=== PATIENT | female | born 1990 | race Caucasian/White ===

== ENCOUNTER 2016-06-22 16:40 | Emergency (ER) | payer BC ==
[~2016-06-22] VITALS: Ht 175.3 cm; Wt 79.5 kg
[2016-06-22 16:41] VITALS: BP 130/74; TEMP 98
[2016-06-22 18:55] LABS: HIV 1/2 Antibodies Non-Reactive; HIV-1p24 Antigen Non-Reactive
[2016-06-22 19:38] VITALS: PULSE 76
[2016-06-26 21:28] LABS: HEPATITIS B SURFACE AB-QL Positive (())
== END 2016-06-22 19:41 | disposition home or self-care (01) ==
LOC: COL.ER 16:40
PROVIDERS: Nurse Practitioner
DX: Z77.21 Contact with and (suspected) exposure to potentially hazardous body fluids (principal); W46.1XXA Contact with contaminated hypodermic needle, initial encounter